=== PATIENT | male | born 1960 | race Caucasian/White ===

== ENCOUNTER → 2016-09-08 | Outpatient (CLI) | payer OTHER ==
--- NOTE | 2016-09-08 09:42 | ECHOF ---
Referral Reason:R07.89 chest pain MEASUREMENTS -------- HEIGHT: 180.3 cm WEIGHT: 68.0 kg BP: IVSd: 1.1 cm (0.6 - 1.1) LVIDd: 3.9 cm (3.9 - 5.3) LVPWd: 1.2 cm (0.6 - 1.1) IVSs: 1.6 cm LVIDs: 2.0 cm LVPWs: 1.3 cm Ao Diam: 3.2 cm (2.0 - 3.7) AV Cusp: 2.2 cm (1.5 - 2.6) LA Diam: 3.1 cm (2.7 - 3.8) MV EXCURSION: 19.783 mm (> 18.000) MV EF SLOPE: 116 mm/s (70 - 150) EPSS: 1.4 cm MV E Jasper: 0.91 m/s MV DecT: 234 ms MV A Jasper: 0.66 m/s MV E/A Ratio: 1.37 RAP: 5.00 mmHg RVSP: 13.69 mmHg FINDINGS -------- Sinus rhythm. This was a technically good study. Left ventricular wall thickness is normal. Overall left ventricular systolic function is normal with, an EF between 55 - 60 %. The right ventricle is normal in size and function. The left atrium is normal in size. The right atrium is normal in size. The aortic valve is trileaflet, and appears structurally normal. No aortic stenosis or regurgitation. There is trace mitral regurgitation. Trace tricuspid regurgitation present. The right ventricular systolic pressure, as measured by Doppler, is 13.69mmHg. The pulmonic valve is normal. The aortic root size is normal. The pericardium is normal. CONCLUSIONS -------- 1. Sinus rhythm. 2. Trace tricuspid regurgitation present. 3. The right ventricular systolic pressure, as measured by Doppler, is 13.69mmHg. 4. The pulmonic valve is normal. 5. The aortic root size is normal. 6. The pericardium is normal. 7. This was a technically good study. 8. Left ventricular wall thickness is normal. 9. Overall left ventricular systolic function is normal with, an EF between 55 - 60 %. 10. The right ventricle is normal in size and function. 11. The left atrium is normal in size. 12. The right atrium is normal in size. 13. The aortic valve is trileaflet, and appears structurally normal. No aortic stenosis or regurgitation. 14. There is trace mitral regurgitation. PLAYGROUND SUPERVISOR: Nancy De La Cruz RDCS
--- NOTE | 2016-09-08 11:29 | EST ---
DATE OF SERVICE: 09/08/2016 AGE: 56Y SEX: M HT: 70" WT: 150 lbs. Lexiscan Cardiolite Stress Test *Heart Rate Blood Pressure *Rest: 52 Rest: 150/90 * *Max. Achieved: 84 Maximum BP: 154/84 85% PMHR: - 100% PMHR: - *METS: - INDICATIONS: Chest pain, dizziness. MEDICATIONS: - Baseline EKG showed a sinus rhythm with normal RI interval and QRS duration. Blood pressure at rest is 150/90 with a pulse rate of 52. A standard dose of Lexiscan was infused. EKGs did not reveal any significant changes from the baseline. FINAL IMPRESSION: 1. Negative Lexiscan stress test. 2. Report on the nuclear images to be given by the radiologist.
--- NOTE | 2016-09-08 16:31 | NM ---
EXAMINATION TYPE: NM stress lexiscan cardiolite DATE OF EXAM: 09/08/2016 11:04 AM COMPARISON: NONE HISTORY: Chest pain TECHNIQUE: After the intravenous administration of 11.0 mCi Tc 99m Sestamibi - Cardiolite resting SP ECT images acquired 45 minutes post injection. The patient received 0.4mg Lexiscan, 27.5 mCi Tc 99m Sestamibi - Stress images obtained [address] injection FINDINGS: Review of stress and rest SPECT images demonstrates no distinct perfusion abnormality. Gated analysi s shows normal wall motion with an estimated left ventricular ejection fraction of 57 %. No fixed or reversible perfusion defects are evident on SPECT imaging. IMPRESSION: 1. No prior infarcts or stress-induced ischemic change. 2. Normal ejection fraction
== END | disposition home or self-care (01) ==
LOC: RADNMMAIN 08:01
PROVIDERS: ATTEND Family Medicine
DX: I08.1 Rheumatic disorders of both mitral and tricuspid valves (principal); R07.89 Other chest pain
CPT/HCPCS: 93017; 93306; 78452; A9500

== ENCOUNTER 2016-11-10 07:39 | Observation (INO) | payer OTHER ==
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
[2016-11-10] MEDS ORDERED: SODIUM CHLORIDE 0.9% 1,000 ML IV STA ×2 (09:09)
[2016-11-10 09:19] LABS: Basophils % (A) 0 %; CH 27.8; CHCM 33.3; Eosinophils # (A) 0.1 k/uL (0-0.7); Eosinophils % (A) 1 %; HCT 47.1 % (39.0-53.0); HDW 2.74; HGB 15.8 gm/dL (13.0-17.5); Luc # (Auto) 0.18; Luc % (Auto) 1; Lymphocytes # (A) 2.3 k/uL (1.0-4.8); Lymphocytes % (A) 18 %; MCH 28.2 pg (25.0-35.0); MCHC 33.6 g/dL (31.0-37.0); MCV 83.8 fL (80.0-100.0); Mean Platelet Volume 7.3; Monocytes # (A) 0.8 k/uL (0-1.0); Monocytes % (A) 7 %; Neutrophils # (A) 9.4 k/uL (1.3-7.7); Neutrophils % (A) 73 %; RBC 5.62 m/uL (4.30-5.90); RDW 14.5 % (11.5-15.5); WBC 12.9 k/uL (3.8-10.6); WBC (Perox) 12.38
[2016-11-10 09:33] LABS: INR 1.1 (<1.1); Partial Thromboplastin Time 26.9 sec (22.0-30.0); Prothrombin Time 11.2 sec (9.0-12.0)
--- NOTE | 2016-11-10 09:38 | XR ---
EXAMINATION TYPE: XR chest 2V DATE OF EXAM: 11/10/2016 9:31 AM COMPARISON: 12/08/2014 INDICATION: Cough TECHNIQUE: Single frontal view of the chest is obtained. FINDINGS: The heart size is normal. The pulmonary vasculature is normal. The lungs are clear. IMPRESSION: 1. No acute pulmonary process.
--- NOTE | 2016-11-10 09:40 | CT ---
EXAMINATION TYPE: CT brain wo con DATE OF EXAM: 11/10/2016 9:34 AM COMPARISON: Previous study dated 01/24/2015. HISTORY: Patient poor historian. Patient shows signs of altered mental status. CT DLP: 814.2 mGycm Automated exposure control for dose reduction was used. FINDINGS: There are mild, generalized changes of sulcal prominence and ventriculomegaly, compatible with atroph ic change. There is diffuse periventricular white matter lucency, compatible with small vessel ischem ic change. This appears to have worsened from previous. There is no acute focal lesion, mass effect o r midline shift identified. I do not see evidence of intracranial blood. Visualized portions of the paranasal sinuses and mastoids are clear. No depressed skull fracture is s een. IMPRESSION: 1. NO ACUTE INTRACRANIAL ABNORMALITY. 2. ATROPHIC CHANGE. 3. CHRONIC WHITE MATTER ISCHEMIC CHANGE.
[2016-11-10 09:47] LABS: ALT 33 U/L (21-72); AST 30 U/L (17-59); Alkaline Phosphatase 56 U/L (38-126); Anion Gap 14 mmol/L; Blood Urea Nitrogen 8 mg/dL (9-20); Calcium 9.8 mg/dL (8.4-10.2); Carbon Dioxide 24 mmol/L (22-30); Chloride 109 mmol/L (98-107); Glucose 98 mg/dL (74-99); Non-African American GFR(MDRD) >60 (>60 ml/min/1.73 sqM); Potassium 4.2 mmol/L (3.5-5.1); Sodium 147 mmol/L (137-145); Total Protein 7.3 g/dL (6.3-8.2)
[2016-11-10] MEDS ORDERED: LEVOFLOXACIN 500MG-D5W PMX 500 MG in DEXTROSE/WATER 1 100ML.BAG IVPB STA (11:14)
[2016-11-10 11:20] LABS: Appearance,Urine Clear (Clear); Bilirubin,Urine Negative (Negative); Glucose,Urine (UA) Negative (Negative); Ketones,Urine 1+ (Negative); Leukocyte Esterase,Urine Negative (Negative); Nitrite,Urine Negative (Negative); PH, Urine 7.5 (5.0-8.0); Protein,Urine Negative (Negative); Specific Gravity,Urine 1.011 (1.001-1.035); UA Billing (MACRO vs. MICRO) CHEM; Urobilinogen,Urine <2.0 mg/dL (<2.0)
[2016-11-10] MEDS ORDERED: SODIUM CHLORIDE 0.9% 1,000 ML IV ONE (12:44)
[2016-11-10] MEDS ORDERED: ACETAMINOPHEN TAB 325 MG TAB PO PRN (12:44)
[2016-11-10] MEDS ORDERED: NALOXONE 0.4 MG/ML 1 ML VIAL IV PRN (12:44)
[2016-11-10] MEDS ORDERED: ONDANSETRON 4 MG/2 ML VIAL IVP PRN (12:44)
[2016-11-10 14:46] VITALS: BMI 24.3
[2016-11-10] MEDS: LISINOPRIL 10 MG TAB PO SCH (16:36)
[2016-11-10] MEDS: NICOTINE 14MG/24HR PATCH TRANSDERM SCH (17:01)
[2016-11-10 17:27] LABS: Alcohol <10 mg/dL
[2016-11-10] MEDS: DONEPEZIL 10 MG TAB PO SCH (20:19)
[2016-11-10] MEDS: ASENAPINE 5 MG TAB SUBLINGUAL SCH (20:19)
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
[2016-11-11] MEDS: CITALOPRAM HYDROBROMIDE 20 MG TAB PO SCH (08:33)
[2016-11-11] MEDS: DONEPEZIL 10 MG TAB PO SCH ×2 (08:33→20:47)
[2016-11-11] MEDS: LISINOPRIL 10 MG TAB PO SCH (08:33)
[2016-11-11] MEDS: NICOTINE 14MG/24HR PATCH TRANSDERM SCH (08:35)
[2016-11-11 09:05] LABS: Basophils % (A) 0 %; CH 27.1; CHCM 31.7; Eosinophils % (A) 0 %; HCT 44.8 % (39.0-53.0); HDW 2.64; HGB 14.5 gm/dL (13.0-17.5); Luc # (Auto) 0.21; Luc % (Auto) 2; Lymphocytes # (A) 2.6 k/uL (1.0-4.8); Lymphocytes % (A) 26 %; MCH 27.8 pg (25.0-35.0); MCHC 32.3 g/dL (31.0-37.0); MCV 86.2 fL (80.0-100.0); Mean Platelet Volume 7.3; Monocytes # (A) 0.6 k/uL (0-1.0); Monocytes % (A) 6 %; Neutrophils # (A) 6.6 k/uL (1.3-7.7); Neutrophils % (A) 65 %; RDW 14.2 % (11.5-15.5); WBC (Perox) 10.44
[2016-11-11 09:18] LABS: ALT 30 U/L (21-72); AST 23 U/L (17-59); Alkaline Phosphatase 45 U/L (38-126); Anion Gap 11 mmol/L; Blood Urea Nitrogen 8 mg/dL (9-20); Calcium 9.1 mg/dL (8.4-10.2); Carbon Dioxide 22 mmol/L (22-30); Chloride 111 mmol/L (98-107); Glucose 98 mg/dL (74-99); Magnesium 1.7 mg/dL (1.6-2.3); Non-African American GFR(MDRD) >60 (>60 ml/min/1.73 sqM); Potassium 3.8 mmol/L (3.5-5.1); Sodium 144 mmol/L (137-145); Total Bilirubin 1.3 mg/dL (0.2-1.3); Total Protein 6.3 g/dL (6.3-8.2)
[2016-11-11] MEDS ORDERED: LEVOFLOXACIN 500MG-D5W PMX 500 MG in DEXTROSE/WATER 1 100ML.BAG IVPB SCH (12:00)
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
--- NOTE | 2016-11-11 15:18 | MR ---
EXAMINATION TYPE: MR brain wo con DATE OF EXAM: 11/11/2016 3:09 PM COMPARISON: CT brain 11/10/2016 HISTORY: AMS, possible dementia CONTRAST: None TECHNIQUE: Multiplanar, multiecho imaging on a 3.0 Skylar magnet is performed through the brain. Stud y is performed within 24 hours of arrival to the hospital. The craniovertebral junction is normal. The pituitary is normal. Diffusion-weighted imaging is performed. No abnormal hyperintensity is present to suggest an acute i ntracranial infarct or acute ischemic change. There is some mild periventricular white matter hyperintensity, likely on the basis of chronic white matter ischemic changes. Couple of punctate hyperintensities are within the deep white matter within the right centrum semiovale. Ventricles and sulci are mildly prominent for the patient age. This is not more focal in the frontal lobes or elsewhere. Internal auditory canals appear unremarkable. Optic chiasm is visualized appears unremarkable. There is a small retention cyst within the inferior left maxillary sinus. Small retention cyst or flu id may be within the inferior right maxillary sinus. IMPRESSIONS: 1. Atrophy with mild periventricular white matter ischemic changes.
--- NOTE | 2016-11-11 15:55 | P.CN ---
Psychiatric Consult - . Consult date: 11/11/16 Consult:: I reviewed the medical record and attempted to interview Mr. Fisher. He was off the unit for an MRI. Will attempt to interview him again tomorrow. 11/11/16 15:54
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
--- NOTE | 2016-11-11 18:02 | P.PN ---
Subjective Patient is a 56-year-old male who presented to the emergency room today with a chief complaint of upper respiratory symptoms that started yesterday. Does admit to cough congestion. Family stated to ER doc that patient was shaking this morning he has been somewhat disoriented at home. PER ER "States not acting like his usual self. Denies any recorded temperatures. He does admit to cough. He admits to rhinorrhea. Patient denies any other complaints but does admit that he just does not feel well. Denies any pain. Patient denies any recent fever, shortness of breath, chest pain, back pain, abdominal pain, nausea or vomiting, numbness or tingling, dysuria or hematuria, constipation or diarrhea, headaches or visual changes, or any other complaints." He is well know to Dr Fuller and has a h/o Bipolar and Schizophrenia. He has seen Dr Hong in July for amnesia and other memory loss. I am unaware who is Psychiatrist is per my office records. He is currently the same per nursing. He is having an MRI and is not available for exam. Spouse unavailable by phone Objective - Vital Signs Vital signs: Vital Signs Temp 97.2 F L 11/11/16 15:00 Pulse 60 11/11/16 15:00 Resp 16 11/11/16 15:00 BP 155/77 11/11/16 15:00 Pulse Ox 97 11/11/16 15:00 Intake & Output 11/10/16 11/11/16 11/11/16 18:59 06:59 18:59 Intake Total 1000 400 360 Balance 1000 400 360 Weight 77.111 kg 77.111 kg Intake: Amount of Fluid Infused ( 1000 ml) Oral 400 360 Other: Voiding Method Toilet Toilet # Voids 1 - Exam Pt in MRI and not available - Labs CBC & Chem 7: 11/11/16 08:17 11/11/16 08:17 Labs: Abnormal Lab Results - Last 24 Hours (Table) 11/11/16 Range/Units 08:17 Chloride 111 H (98-107) mmol/L BUN 8 L (9-20) mg/dL Assessment and Plan Plan: confusion: we will repeat labs, no evidence of any significant infection, on Levaquin deo possible occult infection Recent w/u For amnesia: consult Neuro for further recommendations, ? dementia Schizophrenia & Biploar: consult psych for further evaluation , this may be an exacerbartion of one of these diseases Gerd: restart Omperazole, check Magnesium level DVT prophylaxis: early ambulation I will await consult recommendations, reevaluate in 24 hrs
--- NOTE | 2016-11-11 18:58 | XR ---
EXAMINATION TYPE: XR chest 2V DATE OF EXAM: 11/11/2016 6:32 PM COMPARISON: Yesterday HISTORY: Cough TECHNIQUE: Frontal and lateral views of the chest are obtained. FINDINGS: Heart and mediastinum are normal. Lungs are clear. Costophrenic angles are clear. There ar e no hilar masses. Bony thorax is intact. IMPRESSION: No active cardiopulmonary disease. No change.
[2016-11-11] MEDS: ASENAPINE 5 MG TAB SUBLINGUAL SCH (20:47)
[2016-11-11] MEDS: amLODIPine 5 MG TAB PO SCH (22:55)
[2016-11-11 23:02] LABS: Glucose,Whole Blood 87 mg/dL (75-99)
[2016-11-11] MEDS ORDERED: RX INFO: IV CONTRAST WAS GIVEN 1 EACH MISC MISCELLANE PRN (23:06)
--- NOTE | 2016-11-11 23:18 | P.PN ---
Subjective This patient is a 56-year-old male who was initially seen in neurology consultation yesterday for evaluation of altered mental status and increased confusion. Patient was admitted to hospital for further evaluation. He is being considered for underlying dementia. Psychiatry has been consulted and we' re waiting there recommendations. Patient was able to complete an MRI of the brain today which was reviewed. MRI reveals atrophy and mild periventricular white matter ischemic changes. We will await further input from psychiatry regarding possibility of frontal temporal dementia for this patient. He was seen by cardiology today for evaluation of sinus bradycardia. He appears to have a symptomatic sinus bradycardia and they are recommending a 24-hour DCG to be done as outpatient. Patient's neurological status has not shown much improvement. The patient is noted laying in bed and is more awake and alert. He is more able to converse today and answers simple questions. He denies any headache pain or focal weakness at this time. Apparently he has been treated for underlying psychiatric problems in the past. He is currently taking Saphris and we will await psychiatry's evaluation and recommendations for further management. He was able to complete the EEG today which is reviewed and is moderately slow. We will continue close neurological follow-up of this patient during this admission. Objective - Vital Signs Vital signs: Vital Signs Temp 97.2 F L 11/11/16 15:00 Pulse 60 11/11/16 15:00 Resp 16 11/11/16 15:00 BP 155/77 11/11/16 15:00 Pulse Ox 97 11/11/16 15:00 Intake & Output 11/10/16 11/11/16 11/11/16 18:59 06:59 18:59 Intake Total 1000 400 360 Balance 1000 400 360 Weight 77.111 kg 77.111 kg Intake: Amount of Fluid Infused ( 1000 ml) Oral 400 360 Other: Voiding Method Toilet Toilet # Voids 1 - Exam Physical examination: PHYSICAL EXAMINATION: Patient is resting comfortably in bed. VITAL SIGNS: Blood pressure is [155/77]. Heart rate is [60]. Respiration is [16] . Temperature is [97.2] CHEST: Lungs are clear to auscultation and percussion. CARDIAC: S1, S2 normal rate and rhythm. There is no murmur. ABDOMEN: Soft and nontender. Bowel sounds are present. EXTREMITIES: There is no pedal edema. Peripheral pulses are present. Neurological examination: Patient's neurological examination is unchanged from yesterday. Patient does seem to be more awake and alert and does answer simple questions. - Labs CBC & Chem 7: 11/11/16 08:17 11/11/16 08:17 Labs: Abnormal Lab Results - Last 24 Hours (Table) 11/11/16 Range/Units 08:17 Chloride 111 H (98-107) mmol/L BUN 8 L (9-20) mg/dL Assessment and Plan (1) Acute encephalopathy Status: Acute Code(s): G93.40 - ENCEPHALOPATHY, UNSPECIFIED (2) Vascular dementia Status: Acute Code(s): F01.50 - VASCULAR DEMENTIA WITHOUT BEHAVIORAL DISTURBANCE (3) Acute bronchitis Status: Acute Code(s): J20.9 - ACUTE BRONCHITIS, UNSPECIFIED (4) Mild cognitive impairment Status: Acute Code(s): G31.84 - MILD COGNITIVE IMPAIRMENT, SO STATED Plan: This patient is a 56-year-old male who was admitted to hospital with symptoms of increase confusion and change in mental status. He is undergone an initial computed tomography scan of the brain which failed to reveal any acute changes. He was sent for MRI of the brain today for further assessment of possible early dementia. MRI results are as noted above. He is being treated for psychiatric conditions including a history of bipolar disorder and schizophrenia. He is currently on Saphris as prescribed by his psychiatrist. We are waiting a psychiatric consultation for this patient and they're further recommendations. MRI of the brain was completed today and fails to reveal any evidence of acute stroke. There was some degree of atrophy noted over the temporal lobes bilaterally. We will continue close neurological follow-up for this patient during this admission. His overall prognosis at this time remains very guarded.
--- NOTE | 2016-11-11 23:31 | CT ---
EXAMINATION TYPE: CT brain wo con DATE OF EXAM: 11/11/2016 11:25 PM COMPARISON: Today HISTORY: CODE STROKE CT DLP: 1549.70 mGycm Automated exposure control for dose reduction was used. FINDINGS: There is cerebral cortical atrophy. There is no mass effect nor midline shift. There is no sign of in tracranial hemorrhage. I see no definite cerebral edema. Calvarium is intact. There is mild hypodensi ty in the white matter around the occipital horns of the lateral ventricles. IMPRESSION: Cerebral atrophy. Mild chronic small vessel ischemia. No change compared to exam earlier today at 9:0 0 AM.
--- NOTE | 2016-11-11 23:39 | CT ---
EXAMINATION TYPE: CT angio head neck. CT angiogram of the neck. DATE OF EXAM: 11/11/2016 11:32 PM COMPARISON: NONE HISTORY: CODE STOKE. Left-sided facial droop. Weakness. CT DLP: 1549.70 mGycm Automated exposure control for dose reduction was used. CONTRAST: Performed with IV Contrast, patient injected with 65 mL of Omnipaque 350. There are 3-D post processe d images. FINDINGS: There is normal branching pattern of the great vessels on the aortic arch. There is bilateral patency of the vertebral arteries. There is arterial flow in the common internal and external carotid arteri es. There is wide patency of the carotid artery bifurcations. There is no evidence of arterial dissec tion. There is arterial flow in the anterior middle and posterior cerebral arteries. There is normal contra st opacification of the venous sinuses. There is arterial flow in the vertebrobasilar artery system. There is no evidence of an aneurysm. I see no evidence of stenosis. IMPRESSION: NEGATIVE CT ANGIOGRAM OF THE NECK. NEGATIVE CT ANGIOGRAM OF THE BRAIN.
[2016-11-11 23:52] LABS: Basophils # (A) 0.1 k/uL (0-0.2); Basophils % (A) 0 %; CH 27.8; CHCM 33.8; Eosinophils # (A) 0.1 k/uL (0-0.7); Eosinophils % (A) 1 %; HCT 45.9 % (39.0-53.0); HDW 2.76; HGB 15.6 gm/dL (13.0-17.5); Luc # (Auto) 0.28; Luc % (Auto) 2; Lymphocytes # (A) 3.9 k/uL (1.0-4.8); Lymphocytes % (A) 28 %; MCHC 33.9 g/dL (31.0-37.0); MCV 82.7 fL (80.0-100.0); Mean Platelet Volume 7.3; Monocytes # (A) 1.1 k/uL (0-1.0); Monocytes % (A) 8 %; Neutrophils # (A) 8.2 k/uL (1.3-7.7); Neutrophils % (A) 60 %; RBC 5.56 m/uL (4.30-5.90); RDW 14.4 % (11.5-15.5); WBC 13.5 k/uL (3.8-10.6); WBC (Perox) 12.75
[2016-11-12 00:24] LABS: ALT 37 U/L (21-72); AST 26 U/L (17-59); Alkaline Phosphatase 54 U/L (38-126); Anion Gap 13 mmol/L; Blood Urea Nitrogen 8 mg/dL (9-20); Calcium 9.4 mg/dL (8.4-10.2); Carbon Dioxide 23 mmol/L (22-30); Chloride 107 mmol/L (98-107); Glucose 95 mg/dL (74-99); Non-African American GFR(MDRD) >60 (>60 ml/min/1.73 sqM); Potassium 3.7 mmol/L (3.5-5.1); Sodium 143 mmol/L (137-145); Total Bilirubin 1.5 mg/dL (0.2-1.3); Total Protein 6.4 g/dL (6.3-8.2)
[2016-11-12 05:09] VITALS: RESP 16
[2016-11-12 06:42] LABS: Basophils % (A) 0 %; CH 27.1; CHCM 32.4; Eosinophils % (A) 0 %; HCT 49.1 % (39.0-53.0); HGB 16.3 gm/dL (13.0-17.5); Luc # (Auto) 0.18; Luc % (Auto) 1; Lymphocytes # (A) 2.3 k/uL (1.0-4.8); Lymphocytes % (A) 17 %; MCH 27.9 pg (25.0-35.0); MCHC 33.2 g/dL (31.0-37.0); MCV 84.3 fL (80.0-100.0); Mean Platelet Volume 7.8; Monocytes # (A) 0.8 k/uL (0-1.0); Monocytes % (A) 6 %; Neutrophils # (A) 10.1 k/uL (1.3-7.7); Neutrophils % (A) 75 %; RBC 5.83 m/uL (4.30-5.90); RDW 14.1 % (11.5-15.5); WBC 13.4 k/uL (3.8-10.6); WBC (Perox) 13.52
[2016-11-12 07:04] LABS: ALT 33 U/L (21-72); AST 31 U/L (17-59); Alkaline Phosphatase 53 U/L (38-126); Anion Gap 15 mmol/L; Blood Urea Nitrogen 8 mg/dL (9-20); Calcium 9.5 mg/dL (8.4-10.2); Carbon Dioxide 21 mmol/L (22-30); Chloride 107 mmol/L (98-107); Glucose 88 mg/dL (74-99); Magnesium 1.7 mg/dL (1.6-2.3); Non-African American GFR(MDRD) >60 (>60 ml/min/1.73 sqM); Potassium 3.9 mmol/L (3.5-5.1); Sodium 143 mmol/L (137-145); Total Bilirubin 1.7 mg/dL (0.2-1.3)
[2016-11-12] MEDS: amLODIPine 5 MG TAB PO SCH (08:28)
[2016-11-12] MEDS: ASPIRIN 81 MG CHEW PO SCH (08:28)
--- NOTE | 2016-11-12 08:41 | EEG ---
DATE OF SERVICE: 11/11/2016 INDICATIONS FOR EXAMINATION: This patient is a 56-year-old male being evaluated for altered mental status and tremors involving the arm. Patient also with probable dementia and history of bipolar disorder and schizophrenia. AGE: 56Y FINDINGS: A routine 21-channel awake digital EEG recording was accomplished utilizing the 10 to 20 international system with bipolar and referential montages. The background activity in the most alert resting state consists of a low to medium amplitude, poorly developed and poorly sustained 5 to 6 Hz activity over the posterior head regions. This posterior rhythm attenuates to eye opening. There is a small amount of low amplitude 18 to 20 Hz beta activity seen maximally over the anterior head regions. Muscle and movement artifact was observed on several occasions during the tracing. Hyperventilation was not performed. Photic stimulation at flash frequencies of 2 to 30 Hz produced a minimal occipital driving response. No epileptiform discharges were seen. IMPRESSION: This EEG is moderately abnormal in diffuse fashion due to slowing of the EEG background. The EEG failed to reveal any focal, lateralized or epileptiform abnormalities. Clinical correlation is recommended.
[2016-11-12] MEDS: DONEPEZIL 10 MG TAB PO SCH ×2 (09:13→23:47)
[2016-11-12] MEDS: LISINOPRIL 10 MG TAB PO SCH (09:13)
[2016-11-12] MEDS: NICOTINE 14MG/24HR PATCH TRANSDERM SCH (09:13)
[2016-11-12] MEDS: CITALOPRAM HYDROBROMIDE 20 MG TAB PO SCH (09:14)
[2016-11-12] MEDS ORDERED: VALPROATE SODIUM 1,000 MG in SODIUM CHLORIDE 0.9% 50 ML IVPB ONE (13:06)
[2016-11-12] MEDS: LISINOPRIL 20 MG TAB PO SCH (14:50)
[2016-11-12] MEDS: LEVOFLOXACIN 500 MG TAB PO SCH (14:52)
--- NOTE | 2016-11-12 15:37 | PN ---
Mr. Mg has multiple psych problems and yesterday he became unresponsive. A code stroke was called and we were reconsulted. There was a question of bradycardia but on reviewing Dr. Trammell's note and his rhythm strips, the patient is in sinus rhythm. He does not have any symptomatic bradycardia. He has hypertension, which is under good control. I am recommending a 24-hour DCG as an outpatient and patient can go back to the psych floor today. Blood pressure today is 140/80, pulse rate is about 68 per minute, sinus. S1, S2 heard normally. Lungs are clear. Abdomen and lower extremity exam unchanged. I will increase his Lisinopril from 10 to 20 mg daily for his BP control and then based on clinical course, we will make further recommendations. From a cardiac standpoint, no other intervention is necessary. He can have a follow up as an outpatient with a 24-hour DCG. Thank you very much for the consult.
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
--- NOTE | 2016-11-12 16:30 | P.PN ---
Subjective Patient is a 56-year-old male who presented to the emergency room today with a chief complaint of upper respiratory symptoms that started yesterday. Does admit to cough congestion. Family stated to ER doc that patient was shaking this morning he has been somewhat disoriented at home. PER ER "States not acting like his usual self. Denies any recorded temperatures. He does admit to cough. He admits to rhinorrhea. Patient denies any other complaints but does admit that he just does not feel well. Denies any pain. Patient denies any recent fever, shortness of breath, chest pain, back pain, abdominal pain, nausea or vomiting, numbness or tingling, dysuria or hematuria, constipation or diarrhea, headaches or visual changes, or any other complaints." He is well know to Dr Fuller and has a h/o Bipolar and Schizophrenia. He has seen Dr Hong in July for amnesia and other memory loss. I am unaware who is Psychiatrist is per my office records. a code stroke was called on him yesterday for being unresponsive. Cardiology was consult for bradycardia, but on review his telemetry showed sinus rhythm. He seems to be doing better today. He had a CT brain, brain MRI, repeat CT brain and head CTA. these tests failed to show anything other than questionable chronic ischemia. His mentation had stayed about the same, but he did seem more awake. His is at bedside today. He's been having these symptoms that have slowly worsened over the past month. They felt that he had had dementia starting several months ago. He has a significant history of schizophrenia and bipolar disorders well.he is answering my questions. He is only oriented to self. psychiatry consult and neurology consult were reviewed. Objective - Vital Signs Vital signs: Vital Signs Temp 98.6 F 11/12/16 12:00 Pulse 66 11/12/16 12:00 Resp 16 11/12/16 12:00 BP 164/98 11/12/16 12:00 Pulse Ox 97 11/12/16 12:00 Intake & Output 11/11/16 11/12/16 11/12/16 18:59 06:59 18:59 Intake Total 360 150 130 Balance 360 150 130 Weight 77.111 kg 77.1 kg Intake: Intake, IV Titration 50 Amount Valproate Sodium 1,000 mg 50 In Sodium Chloride 0.9% 50 ml @ 50 mls/hr IVPB ONCE ONE Rx#:[id number] Oral 360 150 80 Other: Voiding Method Toilet Urinal Urinal # Voids 1 - Exam General: The patient is awake and alert, in no distress, and does not appear acutely ill. Neck: The neck is supple, there is no thyromegaly, lymphadenopathy, tenderness or JVD. Cardiovascular: S1S2 is normal, There is a regular rate and rhythm. No murmur, rub or gallop is appreciated. Respiratory: Lungs are course to auscultation bilaterally, respirations are non-labored, breath sounds are equal. Gastrointestinal: Soft, non-distended, non-tender abdomen without masses or organomegaly noted. There is no rebound or guarding present. Bowel sounds are unremarkable. Musculoskeletal: Normal ROM, no tenderness, There is no pedal edema. There is no calf tenderness or swelling. No cords were appreciated. Neurological: CN II-XII intact, there are no obvious motor or sensory deficits. Coordination appears grossly intact. Speech is slow. He is awake alert and oriented 1 only.. Skin: Skin is warm and dry and no rashes or lesions are noted. - Labs CBC & Chem 7: 11/12/16 05:29 11/12/16 05:29 Labs: Abnormal Lab Results - Last 24 Hours (Table) 11/11/16 11/11/16 11/12/16 Range/Units 23:37 23:37 05:29 WBC 13.5 H (3.8-10.6) k/uL Neutrophils # 8.2 H (1.3-7.7) k/uL Monocytes # 1.1 H (0-1.0) k/uL Carbon Dioxide 21 L (22-30) mmol/L BUN 8 L 8 L (9-20) mg/dL Total Bilirubin 1.5 H 1.7 H (0.2-1.3) mg/dL U Marijuana (THC) Screen (NotDetected) 11/12/16 11/12/16 Range/Units 05:29 10:00 WBC 13.4 H (3.8-10.6) k/uL Neutrophils # 10.1 H (1.3-7.7) k/uL Monocytes # (0-1.0) k/uL Carbon Dioxide (22-30) mmol/L BUN (9-20) mg/dL Total Bilirubin (0.2-1.3) mg/dL U Marijuana (THC) Screen Detected H (NotDetected) Assessment and Plan Plan: cognitive impairment/encephalopathy: we will repeat labs, no evidence of any significant infection, on Levaquin for possible occult infection. Neurology is on consult. questionable vascular dementia: continue current treatment. leukocytosis: We'll recheck CBC in a.m. He remains onLevaquin Bipolar: psych consultation has examined the patient. They were not able to do much testing due to the significant cognitive impairment.he will remain on Saphris, Celexa, Depakote, Aricept Gerd: restart Omperazole, check Magnesium level coronary artery disease/history of [place]: Remain on aspirin hypretension: Cardiology is following, continue amlodipine, continue lisinopril unilateral vision:Will monitor. Hepatitis C: Liver function tests have been normal low back pain History Marijuana use: His indicates he uses this for pain relief. There was no significant substances in his toxicology. DVT prophylaxis: early ambulation check labs in a.m., reevaluate in 24 hrs, he may be discharged home in the next 24 hours
--- NOTE | 2016-11-12 18:52 | P.PN ---
Subjective This patient is a 56-year-old male who was initially seen in neurology consultation yesterday for evaluation of altered mental status and increased confusion. Patient was admitted to hospital for further evaluation. He is being considered for underlying dementia. Psychiatry has been consulted and we are waiting there recommendations. Patient was able to complete an MRI of the brain today which was reviewed. MRI reveals atrophy and mild periventricular white matter ischemic changes. We will await further input from psychiatry regarding possibility of frontal temporal dementia for this patient. Psychiatry did see the patient today and agree with the diagnosis of bipolar illness and dementia. He is to continue on his current psychotropic medications. He was seen by cardiology today for evaluation of sinus bradycardia. He appears to have a symptomatic sinus bradycardia and they are recommending a 24-hour DCG to be done as outpatient. Patient's neurological status has not shown much improvement. The patient was noted to have an episode of unresponsiveness late yesterday evening. A code stroke was called. He was sent for a CT of the brain and CTA angiogram study. Both of these studies were negative. Interventional neurology did not feel any need for management or treatment of acute stroke. Patient was sent for repeat EEG today which was reviewed. EEG does reveal some epileptiform discharges. His episode yesterday evening of unresponsiveness possibly was related to seizure. Patient will be started on Depakote as a primary anticonvulsant treatment. This may also help for his bipolar disorder. We will check his level tomorrow and adjust his dose as needed. He is more able to converse today and answers simple questions. He denies any headache pain or focal weakness at this time. Apparently he has been treated for underlying psychiatric problems in the past. He is currently taking Saphris and we will await psychiatry's evaluation and recommendations for further management. His overall prognosis at this time remains very guarded. Objective - Vital Signs Vital signs: Vital Signs Temp 98.6 F 11/12/16 12:00 Pulse 66 11/12/16 12:00 Resp 16 11/12/16 12:00 BP 164/98 11/12/16 12:00 Pulse Ox 97 11/12/16 12:00 Intake & Output 11/11/16 11/12/16 11/12/16 18:59 06:59 18:59 Intake Total 360 150 130 Balance 360 150 130 Weight 77.111 kg 77.1 kg Intake: Intake, IV Titration 50 Amount Valproate Sodium 1,000 mg 50 In Sodium Chloride 0.9% 50 ml @ 50 mls/hr IVPB ONCE ONE Rx#:[id number] Oral 360 150 80 Other: Voiding Method Toilet Urinal Urinal # Voids 1 - Exam Physical examination: PHYSICAL EXAMINATION: Patient is resting comfortably in bed. VITAL SIGNS: Blood pressure is [164/98]. Heart rate is [67]. Respiration is [16] . Temperature is [98.6] CHEST: Lungs are clear to auscultation and percussion. CARDIAC: S1, S2 normal rate and rhythm. There is no murmur. ABDOMEN: Soft and nontender. Bowel sounds are present. EXTREMITIES: There is no pedal edema. Peripheral pulses are present. Neurological examination: Patient's neurological examination is unchanged from yesterday. Patient does seem to be more awake and alert and does answer simple questions. - Labs CBC & Chem 7: 11/12/16 05:29 11/12/16 05:29 Labs: Abnormal Lab Results - Last 24 Hours (Table) 11/11/16 11/11/16 11/12/16 Range/Units 23:37 23:37 05:29 WBC 13.5 H (3.8-10.6) k/uL Neutrophils # 8.2 H (1.3-7.7) k/uL Monocytes # 1.1 H (0-1.0) k/uL Carbon Dioxide 21 L (22-30) mmol/L BUN 8 L 8 L (9-20) mg/dL Total Bilirubin 1.5 H 1.7 H (0.2-1.3) mg/dL U Marijuana (THC) Screen (NotDetected) 11/12/16 11/12/16 Range/Units 05:29 10:00 WBC 13.4 H (3.8-10.6) k/uL Neutrophils # 10.1 H (1.3-7.7) k/uL Monocytes # (0-1.0) k/uL Carbon Dioxide (22-30) mmol/L BUN (9-20) mg/dL Total Bilirubin (0.2-1.3) mg/dL U Marijuana (THC) Screen Detected H (NotDetected) Assessment and Plan (1) Acute encephalopathy Status: Acute Code(s): G93.40 - ENCEPHALOPATHY, UNSPECIFIED (2) Vascular dementia Status: Acute Code(s): F01.50 - VASCULAR DEMENTIA WITHOUT BEHAVIORAL DISTURBANCE (3) Acute bronchitis Status: Acute Code(s): J20.9 - ACUTE BRONCHITIS, UNSPECIFIED (4) Mild cognitive impairment Status: Acute Code(s): G31.84 - MILD COGNITIVE IMPAIRMENT, SO STATED Plan: This patient is a 56-year-old male with multiple complex medical issues. Yesterday evening he went into an episode of unresponsiveness. A code stroke was initiated. He was sent for a computed tomography scan of the brain and CTA angiogram. Both of the studies came back negative. Interventional neurology did not recommend any further intervention with TPA. Today he seems to be back to his normal level of function and mentation. Psychiatry did see the patient today and agree that he likely has bipolar disorder and dementia. He is to continue on Aricept. We will continue him on Depakote to see if this helps with his overall cognition. His overall prognosis at this time remains very guarded.
[2016-11-12] MEDS: DIVALPROEX 500 MG TABLET.DR PO SCH (22:51)
[2016-11-12] MEDS: ASENAPINE 5 MG TAB SUBLINGUAL SCH (23:46)
[2016-11-13 07:07] LABS: Anion Gap 12 mmol/L; Blood Urea Nitrogen 14 mg/dL (9-20); Calcium 9.7 mg/dL (8.4-10.2); Carbon Dioxide 23 mmol/L (22-30); Chloride 107 mmol/L (98-107); Glucose 96 mg/dL (74-99); Non-African American GFR(MDRD) >60 (>60 ml/min/1.73 sqM); Potassium 4.1 mmol/L (3.5-5.1); Sodium 142 mmol/L (137-145)
[2016-11-13] MEDS: amLODIPine 5 MG TAB PO SCH (07:47)
[2016-11-13] MEDS: DONEPEZIL 10 MG TAB PO SCH (07:48)
[2016-11-13] MEDS: CITALOPRAM HYDROBROMIDE 20 MG TAB PO SCH (07:48)
[2016-11-13] MEDS: LISINOPRIL 20 MG TAB PO SCH (07:48)
[2016-11-13] MEDS: DIVALPROEX 500 MG TABLET.DR PO SCH (07:48)
[2016-11-13] MEDS: ASPIRIN 81 MG CHEW PO SCH (07:48)
[2016-11-13] MEDS: NICOTINE 14MG/24HR PATCH TRANSDERM SCH (07:48)
[2016-11-13 08:21] LABS: Basophils % (A) 0 %; CH 27.4; CHCM 32.6; Eosinophils % (A) 0 %; HCT 49.2 % (39.0-53.0); HGB 16.2 gm/dL (13.0-17.5); Luc # (Auto) 0.22; Luc % (Auto) 2; Lymphocytes # (A) 2.1 k/uL (1.0-4.8); Lymphocytes % (A) 16 %; MCH 27.8 pg (25.0-35.0); MCHC 32.8 g/dL (31.0-37.0); MCV 84.7 fL (80.0-100.0); Monocytes # (A) 0.9 k/uL (0-1.0); Monocytes % (A) 7 %; Neutrophils # (A) 10.1 k/uL (1.3-7.7); Neutrophils % (A) 76 %; RBC 5.81 m/uL (4.30-5.90); RDW 14.2 % (11.5-15.5); WBC 13.4 k/uL (3.8-10.6); WBC (Perox) 13.67
--- NOTE | 2016-11-13 09:58 | EEG ---
DATE OF SERVICE: 11/12/2016 INDICATIONS FOR EXAMINATION: This patient is a 56-year-old male being evaluated for new onset seizure. Patient with sudden onset of unresponsiveness and gaze evoked nystagmus. AGE: 56Y EEG FINDINGS: A routine 21-channel, awake digital EEG recording was accomplished utilizing the 10 to 20 international system with bipolar and referential montages. The background activity in the most alert resting state consists of a low to medium amplitude, poorly developed and poorly sustained 6 Hz activity over the posterior head regions. This posterior rhythm attenuates to eye opening. There is a small amount of low amplitude 18 to 20 Hz beta activity seen maximally over the anterior head regions. Muscle and movement artifact was observed on a few occasions during the tracing. Hyperventilation was not performed. Photic stimulation at flash frequencies of 2 to 30 Hz produced a minimal occipital driving response. The main feature of this tracing is the occurrence on several occasions of generalized sharp wave. There is also occasional right temporal lobe small sharp wave focus noted. IMPRESSION: This EEG is abnormal due to the occurrence of generalized sharp waves. The EEG is moderately slow as well. These findings are consistent with a seizure disorder of deep level origin. Compared to a previous EEG done on 11/11/2016, there is a clear change in this finding. Clinical correlation is recommended.
[2016-11-13 11:11] VITALS: BP 153/86; PULSE 63; TEMP 98.7
[2016-11-13] MEDS: LEVOFLOXACIN 500 MG TAB PO SCH (12:18)
--- NOTE | 2016-11-13 14:35 | P.PN ---
Subjective This patient is a 56-year-old male who was initially seen in neurology consultation yesterday for evaluation of altered mental status and increased confusion. Patient was admitted to hospital for further evaluation. He is being considered for underlying dementia. Psychiatry has been consulted and we are waiting there recommendations. Patient was able to complete an MRI of the brain today which was reviewed. MRI reveals atrophy and mild periventricular white matter ischemic changes. We will await further input from psychiatry regarding possibility of frontal temporal dementia for this patient. Psychiatry did see the patient today and agree with the diagnosis of bipolar illness and dementia. He is to continue on his current psychotropic medications. He was seen by cardiology today for evaluation of sinus bradycardia. He appears to have a symptomatic sinus bradycardia and they are recommending a 24-hour DCG to be done as outpatient. Patient's neurological status has not shown much improvement. The patient was noted to have an episode of unresponsiveness late yesterday evening. A code stroke was called. He was sent for a CT of the brain and CTA angiogram study. Both of these studies were negative. Interventional neurology did not feel any need for management or treatment of acute stroke. Patient was sent for repeat EEG today which was reviewed. EEG does reveal some epileptiform discharges. His episode yesterday evening of unresponsiveness possibly was related to seizure. Patient will be started on Depakote as a primary anticonvulsant treatment. This may also help for his bipolar disorder. His Depakote level this morning is slightly subtherapeutic at 46.5. We will increase his maintenance dose of Depakote to 750 mg twice a day and recheck a level tomorrow morning. He is more able to converse today and answers simple questions. He denies any headache pain or focal weakness at this time. Apparently he has been treated for underlying psychiatric problems in the past. He is currently taking Saphris and we will await psychiatry's evaluation and recommendations for further management. This patient's overall mental status does show improvement today. He is more engaged in his conversations. He should follow-up with psychiatry in the outpatient setting. His overall prognosis at this time remains very guarded. Objective - Vital Signs Vital signs: Vital Signs Temp 98.7 F 11/13/16 11:10 Pulse 63 11/13/16 11:10 Resp 16 11/13/16 11:10 BP 153/86 11/13/16 11:10 Pulse Ox 97 11/13/16 11:10 Intake & Output 11/12/16 11/13/16 11/13/16 18:59 06:59 18:59 Intake Total 130 300 Output Total 400 Balance 130 300 -400 Weight 73 kg Intake: Intake, IV Titration 50 300 Amount Valproate Sodium 1,000 mg 50 300 In Sodium Chloride 0.9% 50 ml @ 50 mls/hr IVPB ONCE ONE Rx#:[id number] Oral 80 Output: Urine 400 Other: Voiding Method Urinal Urinal Urinal # Voids 0 1 # Bowel Movements 1 - Exam Physical examination: PHYSICAL EXAMINATION: Patient is resting comfortably in bed. VITAL SIGNS: Blood pressure is [153/86]. Heart rate is [63]. Respiration is [16] . Temperature is [98.7] CHEST: Lungs are clear to auscultation and percussion. CARDIAC: S1, S2 normal rate and rhythm. There is no murmur. ABDOMEN: Soft and nontender. Bowel sounds are present. EXTREMITIES: There is no pedal edema. Peripheral pulses are present. Neurological examination: Patient's neurological examination is unchanged from yesterday. Patient does seem to be more awake and alert and does answer simple questions. - Labs CBC & Chem 7: 11/13/16 06:32 11/13/16 06:32 Labs: Abnormal Lab Results - Last 24 Hours (Table) 11/13/16 Range/Units 06:32 WBC 13.4 H (3.8-10.6) k/uL Neutrophils # 10.1 H (1.3-7.7) k/uL Assessment and Plan (1) Acute encephalopathy Status: Acute Code(s): G93.40 - ENCEPHALOPATHY, UNSPECIFIED (2) Vascular dementia Status: Acute Code(s): F01.50 - VASCULAR DEMENTIA WITHOUT BEHAVIORAL DISTURBANCE (3) Acute bronchitis Status: Acute Code(s): J20.9 - ACUTE BRONCHITIS, UNSPECIFIED (4) Mild cognitive impairment Status: Acute Code(s): G31.84 - MILD COGNITIVE IMPAIRMENT, SO STATED Plan: This patient is a 56-year-old male with multiple complex medical issues. Yesterday evening he went into an episode of unresponsiveness. A code stroke was initiated. He was sent for a computed tomography scan of the brain and CTA angiogram. Both of the studies came back negative. Interventional neurology did not recommend any further intervention with TPA. Today he seems to be back to his normal level of function and mentation. Psychiatry did see the patient today and agree that he likely has bipolar disorder and dementia. He is to continue on Aricept. His Depakote level came back slightly subtherapeutic at 46.5. We will increase his maintenance dose of Depakote to 750 mg by mouth twice a day. He should have a recheck of his Depakote level in a week. He should follow-up with psychiatry in the outpatient setting. Patient does show improvement today in terms of his overall mentation and agitation. He is more conversant. We will continue him on Depakote to see if this helps with his overall cognition. His overall prognosis at this time remains very guarded. Patient is being considered for possible discharge home in the next 24 hours.
--- NOTE | 2016-11-13 17:29 | P.DS ---
Providers Date of admission: 11/10/16 12:17 Expected date of discharge: 11/13/16 Attending physician: Ede Gonzalez Consults: 11/10/16 12:19 Consult Physician Urgent Consulting Provider: Jessica Hahn Consult Reason/Comments: ms changes Do you want consulting provider notified?: Yes 11/10/16 16:26 Consult Physician Routine Consulting Provider: Cassius Lyon Consult Reason/Comments: ams Do you want consulting provider notified?: Already Contacted 11/10/16 16:28 Consult Physician Routine Consulting Provider: Rubina Trammell Consult Reason/Comments: bradycardia Do you want consulting provider notified?: Yes Primary care physician: [facility] Course: Patient is a 56-year-old male who presented to the emergency room today with a chief complaint of upper respiratory symptoms that started yesterday. Does admit to cough congestion. Family stated to ER doc that patient was shaking this morning he has been somewhat disoriented at home. PER ER "States not acting like his usual self. Denies any recorded temperatures. He does admit to cough. He admits to rhinorrhea. Patient denies any other complaints but does admit that he just does not feel well. Denies any pain. Patient denies any recent fever, shortness of breath, chest pain, back pain, abdominal pain, nausea or vomiting, numbness or tingling, dysuria or hematuria, constipation or diarrhea, headaches or visual changes, or any other complaints." He is well know to Dr Fuller and has a h/o Bipolar and Schizophrenia. He has seen Dr Hong in July for amnesia and other memory loss. I am unaware who is Psychiatrist is per my office records. a code stroke was called on him yesterday for being unresponsive. Cardiology was consult for bradycardia, but on review his telemetry showed sinus rhythm. He had a CT brain, brain MRI, which failied to show anything significant Due to worsening mentation, a code strokewas called and repeat CT brain and head CTA. these tests failed to show anything other than questionable chronic ischemia. His mentation had stayed about the same, but he did seem more awake. His is at bedside today. He's been having these symptoms that have slowly worsened over the past month. They felt that he had had dementia starting several months ago. He has a significant history of schizophrenia and bipolar disorders well.he is answering my questions. He is only oriented to self. psychiatry consult and neurology consult were reviewed. He reamined on the Levaquin during his stay. He was safe for D/C by 11/13 D/C DX cognitive impairment/encephalopathy questionable vascular dementia leukocytosis Bipolar Gerd coronary artery disease/history of [place] hypretension unilateral vision Hepatitis C low back pain History Patient Condition at Discharge: Stable Plan - Discharge Summary New Discharge Prescriptions: Divalproex [Depakote] 750 mg PO BID #60 tablet. Levofloxacin [Levaquin] 500 mg PO DAILY@1200 #7 tab Lisinopril [Zestril] 20 mg PO DAILY #90 tab Nicotine 14Mg/24Hr Patch [Habitrol] 1 patch TRANSDERM DAILY #14 patch amLODIPine [Norvasc] 5 mg PO DAILY #90 tab Discharge Medication List Asenapine Maleate [Saphris] 20 mg SL HS 12/08/14 [History] Citalopram Hydrobromide [CeleXA] 40 mg PO DAILY 12/08/14 [History] Donepezil [Aricept] 10 mg PO BID 11/10/16 [History] Ergocalciferol [Vitamin D2 (DRISDOL)] 50,000 unit PO Q30D 11/10/16 [History] Aspirin 81 mg PO DAILY chew 11/13/16 [Rx] Divalproex [Depakote] 750 mg PO BID #60 tablet. 11/13/16 [Rx] Levofloxacin [Levaquin] 500 mg PO DAILY@1200 #7 tab 11/13/16 [Rx] Lisinopril [Zestril] 20 mg PO DAILY #90 tab 11/13/16 [Rx] Nicotine 14Mg/24Hr Patch [Habitrol] 1 patch TRANSDERM DAILY #14 patch 11/13/16 [ Rx] amLODIPine [Norvasc] 5 mg PO DAILY #90 tab 11/13/16 [Rx] Follow up Appointment(s)/Referral(s): Lynne Hahn MD [STAFF PHYSICIAN] - 12/08/16 1:30 pm Saulo Fuller Jr, DO [Primary Care Provider] - 11/18/16 10:15 am Patient Instructions/Handouts: Dementia (GEN), Encephalopathy (DC) Discharge Disposition: HOME SELF-CARE
[2016-11-13] MEDS ORDERED: DIVALPROEX 250 MG TABLET.DR PO SCH (21:00)
== END 2016-11-13 15:20 | disposition home or self-care (01) ==
LOC: EC 07:39 → 5MS5E 12:17 → 6SEL 11-11 23:54
PROVIDERS: ADMIT Family Medicine; ATTEND Family Medicine
DX: R41.0 Disorientation, unspecified (principal); F03.90 Unspecified dementia, unspecified severity, without behavioral disturbance, psychotic disturbance, mood disturbance, and anxiety; F20.9 Schizophrenia, unspecified; F31.9 Bipolar disorder, unspecified; B19.20 Unspecified viral hepatitis C without hepatic coma; F17.200 Nicotine dependence, unspecified, uncomplicated; I10 Essential (primary) hypertension; I25.10 Atherosclerotic heart disease of native coronary artery without angina pectoris; I25.2 Old myocardial infarction; J20.9 Acute bronchitis, unspecified; K21.9 Gastro-esophageal reflux disease without esophagitis; Z79.899 Other long term (current) drug therapy; R41.3 Other amnesia; R00.1 Bradycardia, unspecified; H54.41 Blindness, right eye, normal vision left eye
CPT/HCPCS: 96365 ×2; 96361 ×2; 99285 ×2; 36415; 95819; 95816; 93005; 97162; 97166; 80164; 80053 ×3; 80048; 84443 ×2; 82140; 83605; 83735 ×2; 84484 ×2; 85025 ×4; 85610; 85730; 81003; 87040; 80306; 80320; 87086; 87502; 71020 ×2; 70496; 70450 ×2; 70498; 70551; G0378 ×4; S4990 ×4; J2405; J1956 ×2; 96366; 96367; 96375

== ENCOUNTER → 2016-12-21 | Outpatient (CLI) | payer OTHER ==
[2016-12-21 11:51] LABS: Basophils # (A) 0.1 k/uL (0-0.2); Basophils % (A) 1 %; CH 27.9; CHCM 33.8; Eosinophils # (A) 0.2 k/uL (0-0.7); Eosinophils % (A) 1 %; HDW 2.59; HGB 15.9 gm/dL (13.0-17.5); Luc # (Auto) 0.15; Luc % (Auto) 1; Lymphocytes # (A) 3.6 k/uL (1.0-4.8); Lymphocytes % (A) 31 %; MCHC 32.5 g/dL (31.0-37.0); MCV 83.1 fL (80.0-100.0); Mean Platelet Volume 7.3; Monocytes # (A) 0.7 k/uL (0-1.0); Monocytes % (A) 6 %; Neutrophils # (A) 6.9 k/uL (1.3-7.7); Neutrophils % (A) 60 %; RDW 14.4 % (11.5-15.5); WBC 11.6 k/uL (3.8-10.6); WBC (Perox) 10.94
== END | disposition home or self-care (01) ==
LOC: LABWHC1 11:27
PROVIDERS: ATTEND Psychiatry & Neurology Neurology
DX: G40.909 Epilepsy, unspecified, not intractable, without status epilepticus (principal)
CPT/HCPCS: 36415; 80164; 84450; 84460; 85025

== ENCOUNTER → 2017-04-15 | Outpatient (CLI) | payer MEDICARE, OTHER ==
--- NOTE | 2017-04-15 14:43 | CT ---
EXAMINATION TYPE: CT sinus wo con DATE OF EXAM: 04/15/2017 COMPARISON: CT brain November 11, 2016. HISTORY: Chronic sinusitis per order. Facial pain and sinus problems for [address] DLP: 545 mGycm. Automated Exposure Control for Dose Reduction was Utilized. TECHNIQUE: CT scan of the sinuses is performed without contrast, axial images are obtained, coronal r eformatted images are also reviewed. FINDINGS: Mild mucosal thickening in the anterior ethmoid sinuses bilaterally is redemonstrated. Ther e is mild mucosal thickening in inferior right frontal sinus redemonstrated. There are few tiny mucou s retention cysts or polyps in the bilateral inferior maxillary sinuses. No suspicious opacification or air-fluid levels is identified. The ostiomeatal complex is patent bilaterally on the coronal imag es seen best on coronal image 33. There are suspected bilateral remote slightly displaced nasal bridg e or bone fracture seen best on axial image 27. Visualized portion of mastoid air cells show no abnormal opacification. Patchy soft tissue density l eft extra auditory canals felt to reflect cerumen similar to prior. There is a cortical buckle right globe redemonstrated. IMPRESSION: Mild chronic paranasal sinus disease as detailed above. No CT evidence for acute sinusiti s.
== END ==
LOC: RADCTMAIN 13:54
PROVIDERS: ATTEND Otolaryngology
DX: J32.9 Chronic sinusitis, unspecified (principal)
CPT/HCPCS: 70486

== ENCOUNTER → 2017-11-05 | Outpatient (CLI) | payer MEDICARE, OTHER ==
[2017-11-05 08:49] LABS: Basophils # (A) 0.1 k/uL (0-0.2); Basophils % (A) 1 %; Eosinophils # (A) 0.3 k/uL (0-0.7); Eosinophils % (A) 2 %; HCT 50.4 % (39.0-53.0); HGB 16.1 gm/dL (13.0-17.5); Lymphocytes # (A) 3.5 k/uL (1.0-4.8); Lymphocytes % (A) 22 %; MCH 27.3 pg (25.0-35.0); MCHC 31.9 g/dL (31.0-37.0); MCV 85.7 fL (80.0-100.0); Mean Platelet Volume 7.6; Monocytes # (A) 1.1 k/uL (0-1.0); Monocytes % (A) 7 %; Neutrophils # (A) 10.9 k/uL (1.3-7.7); Neutrophils % (A) 68 %; Platelet Count 286 k/uL (150-450); RBC 5.88 m/uL (4.30-5.90); WBC 16.1 k/uL (3.8-10.6)
[2017-11-05 11:17] LABS: ALT 48 U/L (21-72); AST 35 U/L (17-59); Albumin 4.4 g/dL (3.5-5.0); Alkaline Phosphatase 63 U/L (38-126); Anion Gap 16 mmol/L; Blood Urea Nitrogen 11 mg/dL (9-20); Carbon Dioxide 26 mmol/L (22-30); Chloride 107 mmol/L (98-107); Cholesterol 85 mg/dL (<200); Glucose 100 mg/dL (74-99); HDL Cholesterol 28 mg/dL (40-60); LDL Cholesterol,Calculated 43 mg/dL (0-99); Potassium 4.2 mmol/L (3.5-5.1); Sodium 149 mmol/L (137-145); Total Bilirubin 0.6 mg/dL (0.2-1.3); Total Protein 7.3 g/dL (6.3-8.2); Triglycerides 70 mg/dL (<150)
[2017-11-05 11:43] LABS: Prostate Specific Antigen 0.65 ng/mL (0.00-4.00)
[2017-11-05 12:26] LABS: T4, Free (Free Thyroxine) 1.22 ng/dL (0.78-2.19)
== END | disposition home or self-care (01) ==
LOC: LABWHC1 08:03
PROVIDERS: ATTEND Family Medicine
DX: G47.00 Insomnia, unspecified (principal); N40.0 Benign prostatic hyperplasia without lower urinary tract symptoms; F33.1 Major depressive disorder, recurrent, moderate; I10 Essential (primary) hypertension
CPT/HCPCS: 36415; 80053; 80061; 83735; 84153; 84439; 84443; 85025

== ENCOUNTER → 2018-04-09 | Outpatient (CLI) | payer MEDICARE, OTHER ==
--- NOTE | 2018-04-10 20:58 | MR ---
EXAMINATION TYPE: MR brain wo con DATE OF EXAM: 04/09/2018 COMPARISON: 11/11/2016 HISTORY: 57-year-old male with abnormalities of gait and mobility TECHNIQUE: Multiplanar, multisequence images of the brain and brainstem were acquired without IV con trast. Diffusion weighted imaging is performed. FINDINGS: No evidence for acute infarction, hemorrhage, mass, mass effect, midline shift, herniation, effacemen t of basal cisterns, or extra-axial fluid collection. There is moderate generalized supratentorial volume loss with secondary mild hydrocephalus likely on an ex vacuo basis, not significantly changed from prior. T2/FLAIR weighted sequences show mild scattered burden of bright white matter change in the subcortic al and periventricular regions of both cerebral hemispheres. Midline structures demonstrate normal morphology. The craniocervical junction is normal. Polyp within the left maxillary sinus with trace mucosal thickening in the ethmoid air cells and fron dorota sinuses. Prior scleral banding on the right. IMPRESSION: 1. Stable moderate atrophy and secondary ex vacuo mild ventriculomegaly. 2. Stable mild scattered burden of chronic small vessel ischemic disease. 3. No acute intracranial abnormality seen.
== END | disposition home or self-care (01) ==
LOC: RADMRIMAIN 13:03
PROVIDERS: ATTEND Psychiatry & Neurology Neurology
DX: G93.89 Other specified disorders of brain (principal); G31.9 Degenerative disease of nervous system, unspecified; I67.82 Cerebral ischemia
CPT/HCPCS: 70551